=== PATIENT | male | born 1990 | race Hispanic/Latino ===

== ENCOUNTER 2022-12-04 01:59 | Emergency (ER) | payer OTHER ==
[~2022-12-04] VITALS: Ht 188 cm; Wt 118.4 kg
[2022-12-04 02:01] VITALS: BP 135/90
== END 2022-12-04 05:41 | disposition home or self-care (01) ==
LOC: EDH 01:59
DX: G47.62 Sleep related leg cramps (principal); E86.0 Dehydration